=== PATIENT | female | born 1995 | race African-American/Black ===

== ENCOUNTER 2016-07-28 08:54 | Emergency (ER) | payer OTHER ==
[~2016-07-28] VITALS: Ht 162.6 cm; Wt 63.5 kg
[~2016-07-28 08:54] MED LIST: IBUPROFEN 600600 M1 PO; NAPROSYN500 MG PO
[2016-07-28 09:06] VITALS: BP 118/75
[2016-07-28] MEDS ORDERED: TIZANIDINE HCL4 MG PO (09:18)
[2016-07-28] MEDS ORDERED: IBUPROFEN 600600 M1 PO (09:18)
== END 2016-07-28 09:47 | disposition home or self-care (01) ==
LOC: ER 08:54
DX: S39.012A Strain of muscle, fascia and tendon of lower back, initial encounter (principal); X58.XXXA Exposure to other specified factors, initial encounter; Y93.89 Activity, other specified; Y92.89 Other specified places as the place of occurrence of the external cause; Y99.0 Civilian activity done for income or pay

== ENCOUNTER 2019-06-29 18:25 | Emergency (ER) | payer OTHER ==
[~2019-06-29] VITALS: Ht 152.4 cm; Wt 72.6 kg
[~2019-06-29 18:25] MED LIST changes: +TIZANIDINE HCL4 MG PO
[2019-06-29] MEDS ORDERED: ZPAK PO (19:49)
[2019-06-29 20:14] VITALS: BP 121/76
== END 2019-06-29 20:15 | disposition home or self-care (01) ==
LOC: ER 18:25
DX: R05 Cough (principal)